=== PATIENT | female | born 1985 | race African-American/Black ===

== ENCOUNTER 2016-11-21 14:29 | Emergency (ER) | payer MEDICAID ==
--- NOTE | 2016-11-21 15:55 | ER Document Report ---
ED Medical Screen (RME) - General Mode of Arrival: Ambulatory Information source: Patient TRAVEL OUTSIDE OF THE [place] IN LAST 30 DAYS: No - HPI Associated Symptoms: Other - see above <KIRAN JACKSON - Last Filed: 11/21/16 15:53> <MORENO VIDAL - Last Filed: 11/21/16 17:50> - General Chief Complaint: Abdominal Pain Stated Complaint: ABDOMINAL PAIN Time Seen by Provider: 11/21/16 15:50 Notes: Patient is a 31 year old female who presents to the ED with complaints of RLQ throbbing abdominal pain with onset last week. Patient states she is 7 weeks , this is not her first but she states this feels very different. Patient denies any bleeding. She has not yet had an ultrasound done. (KIRAN JACKSON) - Related Data Allergies/Adverse Reactions: No Known Allergies Allergy (Verified 11/21/16 14:46) Past Medical History - General Information source: Patient - Social History Chew tobacco use (# tins/day): No Frequency of alcohol use: None Drug Abuse: None Renal/ Medical History: Denies: Hx Peritoneal Dialysis - Immunizations Immunizations up to date: Yes Hx Diphtheria, Pertussis, Tetanus Vaccination: No <KIRAN JACKSON - Last Filed: 11/21/16 15:53> Review of Systems - Review of Systems Constitutional: No symptoms reported EENT: No symptoms reported Cardiovascular: No symptoms reported Respiratory: No symptoms reported Gastrointestinal: See HPI, Abdominal pain - RLQ Genitourinary: No symptoms reported Female Genitourinary: See HPI, - 7 weeks. denies: Vaginal bleeding Musculoskeletal: No symptoms reported Skin: No symptoms reported Hematologic/Lymphatic: No symptoms reported Neurological/Psychological: No symptoms reported <KIRAN JACKSON - Last Filed: 11/21/16 15:53> Physical Exam - General General appearance: Appears well, Alert In distress: None - HEENT Head: Normocephalic, Atraumatic Eyes: Normal Extraocular movements intact: Yes Pupils: PERRL - Respiratory Respiratory status: No respiratory distress Breath sounds: Normal - Cardiovascular Rhythm: Regular Heart sounds: Normal auscultation Murmur: No - Back Back: Normal - Extremities General upper extremity: Normal inspection, Normal ROM General lower extremity: Normal inspection, Normal ROM - Neurological Neuro grossly intact: Yes - Psychological Associated symptoms: Normal affect, Normal mood - Skin Skin Temperature: Warm Skin Moisture: Dry Skin Color: Normal <KIRAN JACKSON - Last Filed: 11/21/16 15:53> Course - Laboratory Result Diagrams: 11/21/16 16:00 <MORENO VIDAL - Last Filed: 11/21/16 17:50> - Vital Signs Vital signs: Temp Pulse Resp BP Pulse Ox 98.7 F 90 16 115/72 100 11/21/16 14:46 11/21/16 14:46 11/21/16 14:46 11/21/16 14:46 11/21/16 14:46 - Laboratory Laboratory results interpreted by me: 11/21/16 11/21/16 11/21/16 16:00 16:00 16:00 WBC 11.8 H Hgb 11.2 L Hct 34.3 L Monocytes % 13.5 H Absolute Monocytes 1.6 H Beta HCG, Quant 75927.00 H Ur Leukocyte Esterase SMALL H Doctor's Discharge <KIRAN JACKSON - Last Filed: 11/21/16 15:53> <MORENO VIDAL - Last Filed: 11/21/16 17:50> - Discharge Clinical Impression: , Musculoskeletal pain Condition: Stable Disposition: HOME, SELF-CARE Instructions: [facility] Prescriptions: Metoclopramide HCl [Reglan 10 mg Tablet] 1 tab PO TIDP PRN #25 tablet PRN Reason: Scribe Documentation - Scribe Written by Migdalia:: migdalia Mckeon, 11/21/2016, 1554 acting as scribe for :: Abhilash <KIRAN JACKSON - Last Filed: 11/21/16 15:53>
[2016-11-21 16:14] LABS: ABSOLUTE EOSINOPHILS # (AUTO) 0.1 10^3/uL (0.0-0.6); ABSOLUTE LYMPHOCYTES (AUTO) 2.3 10^3/uL (0.5-4.7); ABSOLUTE MONOCYTES (AUTO) 1.6 10^3/uL (0.1-1.4); ABSOLUTE NEUT (AUTO) 7.8 10^3/uL (1.7-8.2); BASOPHILS % (AUTO) 0.3 % (0-2); EOSINOPHILS % (AUTO) 0.9 % (0-6); HEMATOCRIT 34.3 % (36.0-47.0); HEMOGLOBIN 11.2 g/dL (12.0-15.5); HGB HCT DIFFERENCE -0.7; LYMPHOCYTES % (AUTO) 19.4 % (13-45); MEAN CORPUSCULAR HEMOGLOBIN 27.6 pg (27.0-33.4); MEAN CORPUSCULAR HGB CONC 32.5 g/dL (32.0-36.0); MEAN CORPUSCULAR VOLUME 85 fl (80-97); MONOCYTES % (AUTO) 13.5 % (3-13); RED BLOOD COUNT 4.04 10^6/uL (3.72-5.28); SEGMENTED NEUTROPHILS % (AUTO) 65.9 % (42-78); WHITE BLOOD COUNT 11.8 10^3/uL (4.0-10.5)
[2016-11-21 16:18] LABS: APPEARANCE,URINE SLIGHTLY-CLOUDY; BILIRUBIN,URINE NEGATIVE (NEGATIVE); GLUCOSE, URINE NEGATIVE (NEGATIVE); KETONES,URINE NEGATIVE (NEGATIVE); LEUKOCYTE ESTERASE,URINE SMALL (NEGATIVE); NITRITE,URINE NEGATIVE (NEGATIVE); PROTEIN,URINE NEGATIVE (NEGATIVE); URINE SPECIFIC GRAVITY 1.026; UROBILINOGEN,URINE NEGATIVE mg/dL (<2.0)
--- NOTE | 2016-11-21 17:33 | RADIOLOGY REPORT (SQ) ---
EXAM DESCRIPTION: U/S OB TRANSVAG W/DOPPLER COMPLETED DATE/TIME: 11/21/2016 5:22 pm REASON FOR STUDY: Right pelvic pain COMPARISON: None. TECHNIQUE: Transvaginal static and realtime grayscale images acquired of the pelvis. Additional kartik cted spectral and color Doppler images recorded. All images stored on PACs. bHCG: Not available. LIMITATIONS: None. FINDINGS: FETUS: Living intrauterine . EGA: 6 weeks 4 days FRANKLIN: 07/13/2017 FHR: 139 beats per minute. SUBCHORIONIC BLEED: Yes. SIZE OF BLEED: 1.4 x 1.2 x 0.9 cm UTERUS: No masses. No anomalies. CERVICAL LENGTH: 2.2 cm. Closed. RIGHT ADNEXA: Normal ovary with normal vascular flow. No adnexal free fluid. No adnexal masses. LEFT ADNEXA: Normal ovary with normal vascular flow. No adnexal free fluid. No adnexal masses. FREE FLUID: None. OTHER: No other significant finding. IMPRESSION: LIVING INTRAUTERINE . EGA 6 WEEKS 4 DAYS. SMALL SUBCHORIONIC HEMATOMA. Trimester of : First - 0 to 13 weeks. TECHNICAL DOCUMENTATION: JOB ID: [id number] [employer]- All Rights Reserved
--- NOTE | 2016-11-21 17:50 | ER Document Report ---
ED GI/ - General Mode of Arrival: Ambulatory Information source: Patient TRAVEL OUTSIDE OF THE [place] IN LAST 30 DAYS: No - HPI Location: Suprapubic Vaginal bleeding (Compared to normal period): None Associated symptoms: Other - see narrative <CHRIS MEJIAS - Last Filed: 11/21/16 20:16> <MARCYMORENO EDWIN - Last Filed: 11/22/16 00:58> - General Chief Complaint: Abdominal Pain Stated Complaint: ABDOMINAL PAIN Time Seen by Provider: 11/21/16 15:50 Notes: Patient is a 31-year-old female who presents to emergency department today with complaints of lower abdominal pain. Patient states she is approximately 7 weeks . Patient states the pain is more on the right side of her abdomen and she describes this pain as a "throbbing sensation". Patient states she notices that her pain is exacerbated by certain positions, standing, and sitting. Patient states she has had this pain for approximately 1 week. Patient complained of mild nausea and constipation. Patient denies any symptoms , diarrhea, vomiting, or fevers. (CHRIS MEJIAS) - Related Data Allergies/Adverse Reactions: No Known Allergies Allergy (Verified 11/21/16 14:46) Past Medical History - General Information source: Patient - Social History Smoking Status: Never Smoker Cigarette use (# per day): No Chew tobacco use (# tins/day): No Frequency of alcohol use: None Drug Abuse: None Lives with: Family Family History: Reviewed & Not Pertinent Patient has suicidal ideation: No Patient has homicidal ideation: No - Medical History Medical History: Negative Past Surgical History: Reports: Hx Section - Immunizations Immunizations up to date: Yes Hx Diphtheria, Pertussis, Tetanus Vaccination: No <CHRIS MEJIAS - Last Filed: 11/21/16 20:16> Review of Systems - Review of Systems Constitutional: denies: Fever EENT: No symptoms reported Cardiovascular: No symptoms reported Respiratory: No symptoms reported Gastrointestinal: See HPI, Abdominal pain, Nausea, Constipation. denies: Diarrhea, Vomiting Genitourinary: denies: Dysuria Female Genitourinary: See HPI, Musculoskeletal: No symptoms reported Skin: No symptoms reported Hematologic/Lymphatic: No symptoms reported Neurological/Psychological: No symptoms reported -: Yes All other systems reviewed and negative <CHRIS MEJIAS - Last Filed: 11/21/16 20:16> Physical Exam - Vital signs Interpretation: Normal - General General appearance: Appears well, Alert - HEENT Head: Normocephalic, Atraumatic Eyes: Normal Pupils: PERRL - Respiratory Respiratory status: No respiratory distress Chest status: Nontender Breath sounds: Normal Chest palpation: Normal - Cardiovascular Rhythm: Regular Heart sounds: Normal auscultation Murmur: No - Abdominal Inspection: Normal Distension: No distension Bowel sounds: Normal Tenderness: Nontender Organomegaly: No organomegaly - Back Back: Normal, Nontender - Extremities General upper extremity: Normal inspection, Nontender, Normal color, Normal ROM , Normal temperature General lower extremity: Normal inspection, Nontender, Normal color, Normal ROM , Normal temperature, Normal weight bearing. No: Bernardo's sign - Neurological Neuro grossly intact: Yes Cognition: Normal Orientation: AAOx4 [place] Coma Scale Eye Opening: Spontaneous Joseph Coma Scale Verbal: Oriented Joseph Coma Scale Motor: Obeys Commands [place] Coma Scale Total: 15 Speech: Normal Motor strength normal: LUE, RUE, LLE, RLE Sensory: Normal - Psychological Associated symptoms: Normal affect, Normal mood - Skin Skin Temperature: Warm Skin Moisture: Dry Skin Color: Normal <MORENO VIDAL - Last Filed: 11/22/16 00:58> - Vital signs Vitals: Temp Pulse Resp BP Pulse Ox 98.7 F 90 16 115/72 100 11/21/16 14:46 11/21/16 14:46 11/21/16 14:46 11/21/16 14:46 11/21/16 14:46 Course - Laboratory Result Diagrams: 11/21/16 16:00 <CHRIS MEJIAS - Last Filed: 11/21/16 20:16> - Laboratory Result Diagrams: 11/21/16 16:00 - Diagnostic Test Radiology reviewed: Reports reviewed <MORENO VIDAL - Last Filed: 11/22/16 00:58> - Re-evaluation Re-evalutation: Intrauterine . Taking p.o. Recommend she take Tylenol. No evidence for appendicitis by history or physical exam at this time. Patient will be discharged home with nausea medicine as needed. Return if any worsening or concerning symptoms. Has been given appendicitis precautions. Stable at time of discharge. Follow-up with [facility]. (MORENO VIDAL) - Vital Signs Vital signs: Temp Pulse Resp BP Pulse Ox 98.6 F 87 16 111/65 100 11/21/16 18:07 11/21/16 18:07 11/21/16 18:07 11/21/16 18:07 11/21/16 18:07 - Laboratory Laboratory results interpreted by me: 11/21/16 11/21/16 11/21/16 16:00 16:00 16:00 WBC 11.8 H Hgb 11.2 L Hct 34.3 L Monocytes % 13.5 H Absolute Monocytes 1.6 H Beta HCG, Quant 90488.00 H Ur Leukocyte Esterase SMALL H Discharge <CHRIS MEJIAS - Last Filed: 11/21/16 20:16> <MORENO VIDAL - Last Filed: 11/22/16 00:58> - Discharge Clinical Impression: Musculoskeletal pain Qualifiers: Weeks of gestation: less than 8 weeks Qualified Code(s): Z3A.01 - Less than 8 weeks gestation of Condition: Stable Disposition: HOME, SELF-CARE Instructions: [facility] Prescriptions: Metoclopramide HCl [Reglan 10 mg Tablet] 1 tab PO TIDP PRN #25 tablet PRN Reason: Scribe Attestation: 11/22/16 00:58 I personally performed the services described in the documentation, reviewed and edited the documentation which was dictated to the scribe in my presence, and it accurately records my words and actions. (MORENO VIDAL) Scribe Documentation - Scribe Written by Siva:: Siva Currie, 11/21/20162022 acting as scribe for :: Marcy <CHRIS MEJIAS - Last Filed: 11/21/16 20:16>
[2016-11-21 18:09] VITALS: BP 111/65
== END 2016-11-21 18:07 | disposition home or self-care (01) ==
LOC: ER 14:29
DX: O26.91 Pregnancy related conditions, unspecified, first trimester (principal); M79.1 Myalgia; R10.30 Lower abdominal pain, unspecified; R11.0 Nausea; K59.00 Constipation, unspecified; Z3A.01 Less than 8 weeks gestation of pregnancy
CPT/HCPCS: 36415; 76817; 81001; 84702; 85025; 93976; 99284